=== PATIENT | female | born 1990 | race Caucasian/White ===

== ENCOUNTER → 2018-01-26 | Outpatient (CLI) | payer OTHER ==
[2018-01-26 11:46] LABS: BASO # 0.1 10^3/uL (0.0-0.2); BASO % 0.7 % (0.0-1.0); EOS # 0.1 10^3/uL (0.0-0.50); EOS % 0.8 % (0.0-3.0); HEMOGLOBIN 14.7 g/dl (12.0-15.5); IMMATURE GRANULOCYTE % 0.3 % (0-3.0); LYMPH # 1.5 10^3/uL (1.5-6.5); LYMPH % 20.1 % (24.0-44.0); MEAN CORPUSCULAR HEMOGLOBIN 30.6 pg (27.0-33.0); MEAN CORPUSCULAR HGB CONC 34.2 g/dl (32.0-36.5); MEAN CORPUSCULAR VOLUME 89.6 fl (80.0-96.0); MONO # 0.5 10^3/uL (0.0-0.8); MONO % 6.8 % (0.0-5.0); NEUTROPHILS # 5.2 10^3/uL (1.8-7.7); NEUTROPHILS % 71.3 % (36.0-66.0); PLATELET COUNT, AUTOMATED 218 10^3/uL (150-450); RED CELL DISTRIBUTION WIDTH 11.8 % (11.5-14.5); WHITE BLOOD COUNT 7.3 10^3/uL (4.0-10.0)
[2018-01-26 13:34] LABS: CHLAMYDIA DNA AMPLIFICATION NEGATIVE (NEGATIVE); GC DNA AMPLIFICATION NEGATIVE (NEGATIVE)
[2018-01-27 08:33] LABS: RUBELLA IgG QUALITATIVE IMMUNE (IMMUNE)
[2018-01-27 08:45] LABS: HBsAg Prenatal NEGATIVE (NEGATIVE)
[2018-01-27 09:01] LABS: HEPATITIS C VIRUS ABY INDEX < 0.0 INDEX (<0.8)
[2018-01-27 09:02] LABS: HIV 1&2 SCREEN CENTAUR NEGATIVE (NEGATIVE)
== END ==
LOC: M LRY 08:36
DX: Z34.81 Encounter for supervision of other normal pregnancy, first trimester (principal); Z3A.08 8 weeks gestation of pregnancy

== ENCOUNTER → 2018-03-29 | Outpatient (CLI) | payer OTHER | LOC: M RAD 11:02 | DX: Z34.82 Encounter for supervision of other normal pregnancy, second trimester (principal); Z36.89 Encounter for other specified antenatal screening; Z3A.20 20 weeks gestation of pregnancy | CPT/HCPCS: 76811 ==

== ENCOUNTER → 2018-04-01 | Outpatient (CLI) | payer OTHER | LOC: M SMT 14:01 | DX: Z36.89 Encounter for other specified antenatal screening (principal); Z82.8 Family history of other disabilities and chronic diseases leading to disablement, not elsewhere classified | CPT/HCPCS: 36415 ==

== ENCOUNTER → 2018-05-20 | Outpatient (CLI) | payer OTHER ==
[2018-05-20 16:42] LABS: BASO % 0.3 % (0.0-1.0); EOS # 0.1 10^3/uL (0.0-0.50); EOS % 0.5 % (0.0-3.0); HEMATOCRIT 39.1 % (36.0-47.0); HEMOGLOBIN 13.2 g/dl (12.0-15.5); IMMATURE GRANULOCYTE % 0.9 % (0-3.0); LYMPH # 1.1 10^3/uL (1.5-6.5); LYMPH % 9.1 % (24.0-44.0); MEAN CORPUSCULAR HGB CONC 33.8 g/dl (32.0-36.5); MEAN CORPUSCULAR VOLUME 94.7 fl (80.0-96.0); MONO # 0.5 10^3/uL (0.0-0.8); MONO % 4.4 % (0.0-5.0); NEUTROPHILS # 9.9 10^3/uL (1.8-7.7); NEUTROPHILS % 84.8 % (36.0-66.0); PLATELET COUNT, AUTOMATED 218 10^3/uL (150-450); RED BLOOD COUNT 4.13 10^6/uL (4.00-5.40); RED CELL DISTRIBUTION WIDTH 12.6 % (11.5-14.5); WHITE BLOOD COUNT 11.7 10^3/uL (4.0-10.0)
[2018-05-20 17:02] LABS: GLUCOSE CHALLENGE TEST 1 HOUR 108 MG/DL (LESS THAN 140)
== END ==
LOC: M LRY 09:46
DX: Z34.82 Encounter for supervision of other normal pregnancy, second trimester (principal); Z36.89 Encounter for other specified antenatal screening

== ENCOUNTER → 2018-07-28 | Outpatient (REF) | payer OTHER | LOC: M LAB REF 13:14 | DX: Z34.03 Encounter for supervision of normal first pregnancy, third trimester (principal) ==

== ENCOUNTER 2018-08-13 08:44 | Inpatient (IN) | payer OTHER ==
[~2018-08-13] VITALS: Ht 172.7 cm; Wt 84.1 kg
[2018-08-13] VITALS (23 sets, daily range): BP systolic 102–137; BP diastolic 55–81
[2018-08-13] MEDS ORDERED: PRENTAB9 PO (09:04)
--- NOTE | 2018-08-13 09:25 | IPNPDOC ---
Text Note Date of Service The patient was seen on 08/13/18. NOTE Outpatient 27yo G1 NILAM 08/22/18 presents @ 38w5d with complaints of UC since 0550 and + show. Denies LOF. Fetus active. Mildly uncomfortable UC irregular, 3-4 minutes, + irritability. FH min/moderate variability, no accels at this time. Pt reports feeling naus eated, not eating or drinking yet today SVE far posterior, 3/-2, + show Hydrate, ambulate and reassess VS,Fishbone, I+O VS, Fishbone, I+O Vital Signs Date Time Temp Pulse Resp B/P (MAP) Pulse Ox O2 Delivery O2 Flow Rate FiO2 08/13/18 09:00 99.0 103 18 121/73 (89) María Ayala CNM Aug 13, 2018 09:25
--- NOTE | 2018-08-13 10:07 | IPNPDOC ---
Text Note Date of Service The patient was seen on 08/13/18. NOTE UC remain irregular Nonreactive NST, moderate variability, no accels, Cat II BPP ordered Rationale reviewed with pt VSHardy, I+O VS, Hardy, I+O Vital Signs Date Time Temp Pulse Resp B/P (MAP) Pulse Ox O2 Delivery O2 Flow Rate FiO2 08/13/18 09:00 99.0 103 18 121/73 (89) María Ayala CNM Aug 13, 2018 10:07
--- NOTE | 2018-08-13 11:16 | REP ---
Clinical: Nonreactive stress test . Comparison: 03/29/2018. Findings: Examination demonstrates a single live intrauterine in cephalic presentation. motion is identified by technologist. Placenta is noted fundal and grade II without evidence for placenta previa or abruption. Amniotic fluid volume is normal. Gestational age by LMP 38 weeks 5 days with NILAM 08/22/2018 . FHR equals 149 beats per minute. Amniotic fluid index: 7.7 cm (7.2 - 23.0) Umbilical cord SD ratio: 2.12 (1.6-year - 2.60) Biophysical profile: 6/8 (Movement 0) Impression: 1. Single live advanced gestation in cephalic presentation with a visible but decreased movements. Biophysical profile score equals 6/8. 2. Amniotic fluid volume is lower limits normal. Electronically Signed by Issa Flores MD 08/13/2018 11:07 A
[2018-08-13] MEDS ORDERED: LACTATED RINGER'S 1000 ML IV STA (12:03)
--- NOTE | 2018-08-13 12:13 | HPEPDOC ---
Obstetrical History & Physical General Date of Admission Aug 13, 2018 at 11:30 History of Present Illness Chief Complaint: Contractions, term Information Provided By: Patient Age: 27 : 1 Term: 0 Pre-term: 0 Abortions: 0 Livin Care Care: Good Care Dating Final EDC: Aug 22, 2018 Final EDC by: LMP EGA at Admission: 38 (+5) Antepartum Course Height (inches): 68 Pre- weight (lbs.): 155 Admission Weight (lbs.): 187 Past Medical History Past Obstetrical History : Past Obstetrical History: [employer] History: No pertinent history Past Medical History Surgical History: Denies/None Family History Significant Family History: Other (bipolar, depression, anxiety) Social History Marital Status: Single Family situation: Spouse/partner home Psychosocial History: No pertinent psych hx * Smoker: non-smoker Alcohol: Denies Drugs: denies Imunizations Tdap status: current Influenza Status: current Allergies Coded Allergies: No Known Allergies (Unverified , 08/13/18) Medications Scheduled Multivitamins/ ( 27-0.8 mg) 1 Tab Tab, 1 TAB PO DAILY Physical Examination Physical Examination GENERAL: Alert and oriented times three. BREAST: . ABDOMEN: Gravid and non-tender to touch. FETUS: Is vertex (VTX) by sterile vaginal examination (SVE), fetus is vertex (VTX) by Britton. HEART RATE: Regular rate and rhythm. LUNGS: Clear to auscultation (CTA). EXTREMITIES: No edema. No clonus. Deep tendon reflexes (DTRs) + 2 Vital Signs/I&O Vital Signs Date Time Temp Pulse Resp B/P (MAP) Pulse Ox O2 Delivery O2 Flow Rate FiO2 08/13/18 09:00 99.0 103 18 121/73 (89) Laboratory Data [facility] Laboratory Tests 2 08/13/18 11:39: Serology Scanned Report Hepatitis B Testing Pertinent Laboratoy Data Blood Type: O+ RBC Antibody Screen: Negative HIV: Negative Hepatitis B: Negative Hepatitis C: Negative Rapid Plasma Reagin: Nonreactive Rubella: Immune Chlamydia/Gonorrhea: Negative Group B Streptococcus: Negative Quad Screen Test: Negative (panorama low risk) Glucose Tolerance Test: 108 Anatomy Ultrasound Ultrasound Date: Mar 29, 2018 Placenta Location: Posterior Normal Anatomy: Yes Placenta Previa: No Estimated Weight (grams): 395 Other Ultrasounds 01/12/18 dating 8w2d Steroid Therapy Steroid Therapy: No Vaginal Examination Dilation: 4 cm (-5) Effacement: 90% Station: -2 Cervical Consistency: Soft Cervical Position: Posterior Presentation: Cephalic presentation Assessment Heart Rate (FHR): 150 Variability: Moderate Accelerations: Positive Tocometer Contractions: Yes Frequency: every 2-5 min. Duration: less than 60 seconds Strength: palpated as moderate Assessment/Plan Assessment Samia is a 27-year-old (G)1 para (P)0-0-0-0 at 38+5 weeks by 8-week ultrasound. Presents to Labor and Delivery (L&D) early labor and decreased movement. BPP 6/8 with initially nonreactive NST. Initial exam 3cm, now 4-5/90/-2 with light bloody show. Dr Schuler aware of pt status. Plan Admit and orient. Informal Waiter/Waitress and consent. Diet: as tolerate. Group B Streptococcus (GBS) negative Labs and intravenous (IV) per unit protocol. Counseled on Pitocin and induction of labor (IOL). Lactated Ringers (LR): Bolus 500 mL, then saline lock Pt plans to labor ad oskar Anticipate normal spontaneous delivery () C-S as appropriate. María Ayala CNM Aug 13, 2018 12:13
[2018-08-13 12:29] LABS: HEMATOCRIT 39.7 % (36.0-47.0); MEAN CORPUSCULAR HEMOGLOBIN 31.6 pg (27.0-33.0); MEAN CORPUSCULAR HGB CONC 35.3 g/dl (32.0-36.5); MEAN CORPUSCULAR VOLUME 89.6 fl (80.0-96.0); PLATELET COUNT, AUTOMATED 177 10^3/uL (150-450); RED BLOOD COUNT 4.43 10^6/uL (4.00-5.40); WHITE BLOOD COUNT 24.1 10^3/uL (4.0-10.0)
--- NOTE | 2018-08-13 16:27 | IPNPDOC ---
Text Note Date of Service The patient was seen on 08/13/18. NOTE Reports increased discomfort, coping well UC Q 1-3 minutes x 45-60 seconds, moderate FH 145, Cat I SVE /-2, AROM clear fluid Anticipate NSVB VS,Fishbone, I+O VS, Fishbone, I+O Laboratory Tests 08/13/18 11:56 Red Blood Count 4.43, Mean Corpuscular Volume 89.6, Mean Corpuscular Hemoglobin 31.6, Mean Corpuscular Hemoglobin Concent 35.3, Red Cell Distribution Width 12.5 Vital Signs Date Time Temp Pulse Resp B/P (MAP) Pulse Ox O2 Delivery O2 Flow Rate FiO2 08/13/18 15:05 99.3 109 18 131/67 (88) María Ayala CNM Aug 13, 2018 16:27
[2018-08-13] MEDS ORDERED: PROMETHAZINE INJ 25 MG/ML VIAL (J2550) As Ordered ONE (17:35)
[2018-08-13] MEDS ORDERED: BUTORPHANOL 2 MG/ML INJ (J0595) As Ordered ONE (17:35)
[2018-08-13] MEDS ORDERED: BUTORPHANOL 2 MG/ML INJ (J0595) IV ONE (17:45)
[2018-08-13] MEDS ORDERED: PROMETHAZINE INJ 25 MG/ML VIAL (J2550) IV ONE (17:45)
[2018-08-13] MEDS ORDERED: LACTATED RINGER'S 1000 ML IV ONE (18:30)
[2018-08-13] MEDS ORDERED: FENTANYL 2MCG/ML ROPIVACAINE 0.2% IN 0.9% NACL 100ML IVBAG As Ordered ONE (19:46)
[2018-08-13] MEDS ORDERED: LR 1,000 ML IV SCH (20:36)
--- NOTE | 2018-08-13 20:37 | IPNPDOC ---
Text Note Date of Service The patient was seen on 08/13/18. NOTE Comfortable with epidural UC 2-3 minutes apart x 45 seconds FH 145, Cat I SVE 7-8/90/0 Fluid remains clear Pitocin augmentation VS,Fishbone, I+O VS, Fishbone, I+O Laboratory Tests 08/13/18 11:56 Red Blood Count 4.43, Mean Corpuscular Volume 89.6, Mean Corpuscular Hemoglobin 31.6, Mean Corpuscular Hemoglobin Concent 35.3, Red Cell Distribution Width 12.5 Vital Signs Date Time Temp Pulse Resp B/P (MAP) Pulse Ox O2 Delivery O2 Flow Rate FiO2 08/13/18 18:53 99.6 89 18 105/55 (72) María Ayala CNM Aug 13, 2018 20:37
[2018-08-13] MEDS ORDERED: OXYTOCIN DRIP 30 UNITS in APPROPRIATE DILUENT 1 EA IV SCH (20:45)
[2018-08-13] MEDS ORDERED: diphenhydrAMINE INJ 50MG/ML VIAL (J1200) IV PRN (21:00)
[2018-08-13] MEDS ORDERED: EPIDURAL/PCA KEYS XX PRN (21:00)
[2018-08-13] MEDS ORDERED: ePHEDrine SULFATE 25 MG/5 ML(5MG/ML) SYRINGE IV PRN (21:00)
[2018-08-13] MEDS ORDERED: FENTANYL/ROPIVACAINE/NACL BAG 100 ML EPIDURAL SCH (21:00)
[2018-08-13] MEDS ORDERED: NALOXONE INJ 0.4 MG/1 ML VIAL (J2310) IV PRN (21:00)
[2018-08-13] MEDS ORDERED: EPIDURAL COMMENT XX SCH (21:00)
[2018-08-13] MEDS ORDERED: LACTATED RINGER'S 1000 ML IV PRN (21:00)
[2018-08-13] MEDS ORDERED: ONDANSETRON 4MG/2ML VIAL (J2405) IV PRN (21:00)
[2018-08-13] MEDS ORDERED: REFRIGERATOR IV KEYS XX PRN (21:00)
[2018-08-14] VITALS (9 sets, daily range): BP systolic 110–126; BP diastolic 55–78
[2018-08-14 01:55] LABS: CORD GAS ABE A -12.2; CORD GAS O2 SAT A 59.6 %; CORD GAS PH A 7.132 UNITS; CORD GAS PO2 A 31.6 mmHg; CORD GAS SBC A 14.3 MEQ/L; CORD GAS TCO2 A 18.6 MEQ/L
[2018-08-14 01:57] LABS: CORD GAS ABE V -11.6; CORD GAS HCO3 V 17.4 MEQ/L; CORD GAS O2 SAT V 66.5 %; CORD GAS PCO2 V 51.2 mmHg; CORD GAS PH V 7.148 UNITS; CORD GAS PO2 V 35.6 mmHg; CORD GAS SBC V 14.9 MEQ/L; CORD GAS TCO2 V 18.9 MEQ/L
[2018-08-14] MEDS ORDERED: RHOGAM 300 MCG (1500 IU) INJ (J2790) IM SCH (02:30)
[2018-08-14] MEDS ORDERED: MOM 30ML SUSPENSION UDC PO PRN (02:30)
[2018-08-14] MEDS ORDERED: DIBUCAINE 1% OINTMENT 30GM TOP PRN (02:30)
[2018-08-14] MEDS ORDERED: ANUSOL HC CREAM 30GM TOP PRN (02:30)
[2018-08-14] MEDS ORDERED: MEASLES,MUMPS,RUBELLA VACCINE INJ (MMR-II) (90707) SC SCH (02:30)
[2018-08-14] MEDS ORDERED: DOCUSATE SODIUM 100 MG CAP PO PRN (02:30)
[2018-08-14] MEDS ORDERED: METHYLERGONOVINE MALEATE 0.2 MG/ML VIAL (J2210) IM ONE (02:30)
[2018-08-14] MEDS ORDERED: ACETAMINOPHEN 500 MG TAB PO PRN (02:30)
--- NOTE | 2018-08-14 02:30 | DNPDOC ---
[facility] Delivery Note Delivery Note DATE OF DELIVERY: 08/14/18 PREDELIVERY DIAGNOSIS: 38-6/7 weeks' gestation and labor. POST DELIVERY DIAGNOSIS: Delivered. PROCEDURE: Spontaneous vaginal delivery. PROVIDER: María Ayala CNM ANESTHESIA: Epidural. ESTIMATED BLOOD LOSS: 400 mL. FINDINGS: Male , Score 7/8, no nuchal cord, compound R posterior arm. DELIVERY SUMMARY: Patient is a 27-year-old 1 now para 1-0-0-1 who was admitted to labor and delivery in early labor. AROM clear fluid 1621. She utilized an epidural for labor coping and received pitocin augmentation. Viable male delivered MARY ALICE, compound with R posterior arm @ 0135. Moderate meconium stained fluid noted with delivery of head, bulb suctioned prior to delivery of shoulders. Spontaneous respirations with stimulation, initial transition on maternal abdomen then cord doubly clamped and cut for further suctioning and evaluation at warmer. Cord gases arterial 7.132 with BE -12.2, venous 7.148 with BE -11.6. Apgars 7/8. Placenta michael, intact with trailing membranes and 3v cord @ 0159. Fundus firmed with massage and IV pitocin bolus, becoming boggy again. Methergine 0.2mg IM given with good effect on bleeding. 2nd degree perineal and R labial laceration repaired with 3-0 vicryl rapide. Infant wt is pending due to evaluation in NICU. Sponge, sharp and instrument count correct. Parents are naming their son Pilo. María Ayala CNM Aug 14, 2018 02:27
[2018-08-14] MEDS: METHYLERGONOVINE MALEATE 0.2 MG TAB PO SCH ×4 (07:14→23:59)
[2018-08-14] MEDS: PRENATAL VITAMINS CHEWABLE TABLET PO SCH (09:15)
[2018-08-14] MEDS: IBUPROFEN 800 MG TAB PO PRN ×2 (09:16→15:47)
[2018-08-15 06:00] VITALS: BP 118/82
[2018-08-15] MEDS: IBUPROFEN 800 MG TAB PO PRN ×2 (09:29→19:42)
[2018-08-15] MEDS: PRENATAL VITAMINS CHEWABLE TABLET PO SCH (09:53)
[2018-08-15 17:57] VITALS: BP 118/71
[2018-08-16 06:00] VITALS: BP 101/56
[2018-08-16] MEDS: PRENATAL VITAMINS CHEWABLE TABLET PO SCH (08:00)
[2018-08-16] MEDS ORDERED: IBUP-1114 PO (08:27)
[2018-08-16] MEDS ORDERED: MAPA500T17 PO (08:27)
[2018-09-13] MEDS ORDERED: METHYLERGONOVINE MALEATE 0.2 MG TAB PO PRN (06:00)
== END 2018-08-16 14:45 | disposition home or self-care (01) | DRG 807 ==
LOC: M LDO 08:44 → M LDI 11:30 → M OBS 08-14 06:04
PROVIDERS: ADMIT Advanced Practice Midwife; ATTEND Advanced Practice Midwife
PROC: 10E0XZZ Delivery of Products of Conception, External Approach (ICD-10-PCS; principal; 2018-08-14)
PROC: 0HQ9XZZ Repair Perineum Skin, External Approach (ICD-10-PCS; 2018-08-14)
PROC: 10907ZC Drainage of Amniotic Fluid, Therapeutic from Products of Conception, Via Natural or Artificial Opening (ICD-10-PCS; 2018-08-14)
DX: O32.6XX0 Maternal care for compound presentation, not applicable or unspecified (principal); Z37.0 Single live birth; Z3A.38 38 weeks gestation of pregnancy; O77.0 Labor and delivery complicated by meconium in amniotic fluid; O70.0 First degree perineal laceration during delivery; O36.8130 Decreased fetal movements, third trimester, not applicable or unspecified